=== PATIENT | female | born 1980 | race African-American/Black ===

== ENCOUNTER 2016-12-15 14:35 | Emergency (ER) | payer MEDICAID ==
[~2016-12-15] VITALS: Ht 170.2 cm; Wt 122.5 kg
[2016-12-15 14:36] VITALS: BP 144/94
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
[2016-12-15 15:01] LABS: APPEARANCE,URINE CLEAR; KETONES,URINE NEGATIVE (NEGATIVE); LEUKOCYTE ESTERASE ,URINE NEGATIVE (NEGATIVE); NITRITE,URINE NEGATIVE (NEGATIVE); PH,URINE 6.5 (4.5-8.0); PROTEIN,URINE NEGATIVE (NEGATIVE); UROBILINOGEN,URINE NORMAL MG/DL (0.0-1.0)
[2016-12-15] MEDS ORDERED: ROBAXIN500 MG PO (16:20)
[2016-12-15] MEDS ORDERED: IBUPROFEN600 MG ORAL (16:20)
[2016-12-15 16:45] VITALS: BP 137/84
[2016-12-15 17:03] VITALS: BP 144/94
--- NOTE | 2016-12-15 17:37 | Diagnostic Imaging Report ---
Indications: Right and left hand injury and pain Technique: 3 views right hand, 3 views left hand. Findings: Comparison: None Overlapping fingers on lateral views limits evaluation. No fracture, dislocation, joint space widening , surrounding soft tissue swelling/foreign body/gas, or other acute changes are identified. IMPRESSION: No evidence of acute injury to the right or left hand, limited as described.
--- NOTE | 2016-12-15 17:37 | Diagnostic Imaging Report ---
Indication: Chest trauma, pain Technique: PA and lateral views of the chest. Findings: Comparison: None The bones and extra pulmonary soft tissues, cardiomediastinal silhouette, pulmonary vasculature and parenchyma, and pleural surfaces are unremarkable. IMPRESSION: Negative PA and lateral chest radiographs
--- NOTE | 2016-12-16 08:26 | Diagnostic Imaging Report ---
Indications: Trauma, low back pain. Technique: 3 views of the lumbar spine Findings: Comparison: None Prominent osteophytes at the margins of T11-12 disc space. Mild facet sclerosis and hypertrophy at L5-S1. No fracture, lytic destruction, or other acute changes are demonstrated. No additional degenerative changes, deformity, or other chronic changes are demonstrated. IMPRESSION: No evidence of acute lumbar injury Degenerative spondylosis
== END 2016-12-15 17:06 | disposition home or self-care (01) ==
LOC: EDBD 14:35 → EMR 16:34
DX: T14.90 Injury, unspecified (principal); R07.9 Chest pain, unspecified; M54.9 Dorsalgia, unspecified; M79.642 Pain in left hand; M79.641 Pain in right hand; V43.92XA Unspecified car occupant injured in collision with other type car in traffic accident, initial encounter; Y92.410 Unspecified street and highway as the place of occurrence of the external cause; Y99.8 Other external cause status
CPT/HCPCS: 71020; 72020; 80300; 81003; 81025; 99284